=== PATIENT | female | born 1950 | race Caucasian/White ===

== ENCOUNTER → 2017-09-21 | Outpatient (CLI) | payer OTHER | END | disposition home or self-care (01) | LOC: CFH 12:41 | PROVIDERS: ATTEND Physician Assistant | DX: M43.8X6 Other specified deforming dorsopathies, lumbar region (principal); K74.69 Other cirrhosis of liver; B18.2 Chronic viral hepatitis C; R16.1 Splenomegaly, not elsewhere classified; M54.2 Cervicalgia | CPT/HCPCS: 72050; 72110; 76705 ==

== ENCOUNTER → 2018-04-21 | Outpatient (CLI) | payer OTHER | END | disposition home or self-care (01) | LOC: CFH 11:10 | PROVIDERS: ATTEND Physician Assistant | DX: Z13.818 Encounter for screening for other digestive system disorders (principal); K74.69 Other cirrhosis of liver | CPT/HCPCS: 76705 ==

== ENCOUNTER → 2019-01-02 | Outpatient (CLI) | payer MEDICARE | END | disposition home or self-care (01) | LOC: CFH 11:47 | PROVIDERS: ATTEND Physician Assistant | DX: B18.2 Chronic viral hepatitis C (principal); K74.69 Other cirrhosis of liver | CPT/HCPCS: 76705 ==